=== PATIENT | male | born 1955 | race Caucasian/White ===

== ENCOUNTER 2018-05-09 18:59 | Emergency (ER) | payer OTHER ==
[~2018-05-09] VITALS: Ht 170.2 cm; Wt 74.8 kg
--- NOTE | 2018-05-09 19:49 | NUR ---
Pt ALBER FROM HOME C/O A TOOTHACHED THAT HE HAD FOR THE PAST 3 DAYS. STATES THAT IT GOT WORSE TODAY, AND THAT HIS DENTIST IS FULL TO TAKE APPOINTMENTS UNTIL TUESDAY, SO WAS TOLD TO GO TO THE ER FOR TREATMENT. BEING SEEN BY .
[2018-05-09] MEDS ORDERED: IBUPROFEN 600 MG TABLET PO ONE ×2 (19:57→20:00)
[2018-05-09] MEDS ORDERED: HYDROCODONE/APAP 5/325MG 1 EACH TABLET ONE (19:57)
[2018-05-09] MEDS ORDERED: HYDROCODONE/APAP 5/325MG 1 EACH TABLET PO ONE (20:00)
--- NOTE | 2018-05-09 20:08 | NUR ---
Patient discharged to home in stable condition. Written and verbal after care instructions given. Patient verbalizes understanding of instruction. instructed pt not to drive home after taking the pain med. per pt son was waiting in the lobby for him to drive him back home. pt left walking with a steady gait, no s/s of distress.
[2018-05-09 20:10] VITALS: BP 140/98
== END 2018-05-09 19:42 | disposition home or self-care (01) ==
LOC: ER 19:00
DX: K08.89 Other specified disorders of teeth and supporting structures (principal); I10 Essential (primary) hypertension; Z98.890 Other specified postprocedural states
CPT/HCPCS: 99283; A4606; Z7610